=== PATIENT | female | born 1975 | race Caucasian/White ===

== ENCOUNTER 2020-02-13 09:49 | Emergency (ER) | payer SELFPAY ==
[~2020-02-13] VITALS: Ht 157 cm; Wt 81.0 kg
[~2020-02-13 09:49] MED LIST: ACET1TAB43 PO; BIRTH CONTROL; CIPR500T78 PO; DOCU-143 PO; DOCU100C37 PO; DOCU100T7; FERR325T18 PO; FLUO20CA42; GLYB2.5T4 PO; HCA25SU PR; IBUP-1773 PO; PREN1TAB86 PO
--- NOTE | 2020-02-13 10:36 | ED Cough/URI ---
General Chief Complaint: Respiratory Problems Stated Complaint: COUGH,SOB, WEAK ,COVID EXPOSURE Nursing Triage Note: [place] [facility] [place] COMPLAINS OF HEADACEH AND GENERALIZED WEAKNESS SINCE TUESDAY. DAUGHTER WHO LIVES IN THE SAME HOUSE IS COVID POSITIVE. Sepsis Screen: Possible Severe Sepsis Risk Source: patient Exam Limitations: no limitations History of Present Illness Date Seen by Provider: Feb 13, 2020 Time Seen by Provider: 10:34 Initial Comments With reports of cough shortness of breath weakness. Her daughter with whom she lives is Covid positive. This patient also developed a headache starting on Tuesday 6 days ago Timing/Duration: constant Severity/Quality: moderate Prior Episodes/Possible Cause: no prior episodes Associated Symptoms: denies symptoms Allergies and Home Medications Allergies Coded Allergies: No Known Drug Allergies (Unverified , 06/12/09) Home Medications Acetaminophen with Codeine 1 Each Tablet, 1-2 TAB PO Q4H PRN for MODERATE TO SEVERE PAIN Prescribed by: KAYKAY BURGESS on 03/04/16 110 Docusate Sodium 100 Mg Capsule, 100 MG PO BID PRN for CONSTIPATION Prescribed by: KAYKAY BURGESS on 03/04/16 1107 Ferrous Sulfate 325 Mg Tablet, 325 MG PO BID, (Reported) Ibuprofen 600 Mg Tablet, 600 MG PO Q6H Prescribed by: KAYKAY BURGESS on 03/04/16 1107 Vit W-Ca,Fe,FA(<1 mg) 1 Each Tablet, 1 EACH PO DAILY, (Reported) Patient Home Medication List Home Medication List Reviewed: Yes Review of Systems Review of Systems Constitutional: see HPI EENTM: see HPI Respiratory: no symptoms reported Cardiovascular: no symptoms reported Genitourinary: no symptoms reported Musculoskeletal: see HPI, muscle weakness Skin: no symptoms reported Psychiatric/Neurological: No Symptoms Reported, Headache Hematologic/Lymphatic: No Symptoms Reported Immunological/Allergic: no symptoms reported Past Ewuuawl-Ejmzrz-Ucjgaw Hx Patient Social History Recent Foreign Travel: No Contact w/Someone Who Travel: No Recent Infectious Disease Expo: No Recent Hopitalizations: No Immunizations Up To Date Tetanus Booster (TDap): Less than 5yrs PED Vaccines UTD: No Date of Influenza Vaccine: Jan 31, 2016 Seasonal Allergies Seasonal Allergies: No Past Medical History Surgeries: No Respiratory: No Cardiac: No Neurological: No Reproductive Disorders: No Sexually Transmitted Disease: No Gastrointestinal: No Musculoskeletal: No Endocrine: No Cancer: No Psychosocial: No Integumentary: No Blood Disorders: No (Hx of anemia) Adverse Reaction/Blood Tranf: No Family Medical History Diabetes mellitus 19 FATHER (father) 19 MOTHER (mother) No Pertinent Family Hx Physical Exam Vital Signs - First Documented 02/13/20 10:15 Temp 36.6 Pulse 99 Resp 18 B/P (MAP) 112/65 (81) Pulse Ox 100 O2 Delivery Room Air Capillary Refill : Less Than 3 Seconds Height: 5'1.00" Weight: 201lbs. 4.0oz. 91.408004ry; 32.00 BMI Method:Stated General Appearance: WD/WN, no apparent distress, obese Eyes: Bilateral Eye Normal Inspection, Bilateral Eye PERRL, Bilateral Eye EOMI Neck: non-tender, full range of motion Respiratory: normal breath sounds, no respiratory distress, no accessory muscle use Gastrointestinal: normal bowel sounds, non tender, soft Neurologic/Psychiatric: alert, normal mood/affect, oriented x 3 Skin: normal color, warm/dry Progress/Results/Core Measures Suspected Sepsis Recent Fever Within 48 Hours: Yes Infection Criteria Present: Suspected New Infection New/Unexplained Altered Menta: No Sepsis Screen: Possible Severe Sepsis Risk SIRS Temperature: Pulse: 99 Respiratory Rate: 18 Laboratory Tests 02/13/20 10:25: Blood Pressure 112 /65 Mean: 81 Laboratory Tests 02/13/20 10:25: Results/Orders Lab Results Laboratory Tests Test 02/13/20 10:25 Range/Units Coronavirus 2019 (MALIK) Positive H Negative My Orders Orders - NARCISA LOWRY APRN Cbc With Automated Diff (02/13/20 10:30) Comprehensive Metabolic Panel (02/13/20 10:30) Hs C Reactive Protein (02/13/20 10:30) Covid 19 Inhouse Test (02/13/20 10:30) Chest 1 View, Ap/Pa Only (02/13/20 10:30) Ed Iv/Invasive Line Start (02/13/20 10:30) Vital Signs/I&O 02/13/20 10:15 Temp 36.6 Pulse 99 Resp 18 B/P (MAP) 112/65 (81) Pulse Ox 100 O2 Delivery Room Air Capillary Refill : Less Than 3 Seconds Blood Pressure Mean: 81 Departure Impression Primary Impression: COVID-19 Disposition: 01 HOME, SELF-CARE Condition: Stable Departure-Patient Inst. Decision time for Depature: 10:57 Referrals: NO,LOCAL PHYSICIAN (PCP/Family) Primary Care Physician Patient Instructions: COVID19 Add. Discharge Instructions: 1. Tylenol and ibuProfen for fever or discomfort. Qocx-id-phea quarantined away from others. [facility] will be in touch with you to further guide you on quarantine restrictions. All discharge instructions reviewed with patient and/or family. Voiced understanding. NARCISA LOWRY MANAGER [employer] Feb 13, 2020 10:36
[2020-02-13 10:53] LABS: BASOPHILS % (AUTO) 0 % (0-10); EOSINOPHILS % (AUTO) 0 % (0-10)
[2020-02-13 10:55] LABS: HEMATOCRIT 30 % (35-52); HEMOGLOBIN 8.4 g/dL (11.5-16.0); LYMPHOCYTES # (AUTO) 1.5 10^3/uL (1.0-4.0); LYMPHOCYTES % (AUTO) 24 % (12-44); MEAN CORPUSCULAR HEMOGLOBIN 17 pg (25-34); MEAN CORPUSCULAR HGB CONC 29 g/dL (32-36); MEAN CORPUSCULAR VOLUME 59 fL (80-99); MEAN PLATELET VOLUME 10.1 fL (9.0-12.2); MONOCYTES # (AUTO) 0.4 10^3/uL (0.0-1.0); MONOCYTES % (AUTO) 7 % (0-12); NEUTROPHILS # (AUTO) 4.4 10^3/uL (1.8-7.8); NEUTROPHILS % (AUTO) 69 % (42-75); PLATELET COUNT 395 10^3/uL (130-400); WHITE BLOOD COUNT 6.3 10^3/uL (4.3-11.0)
[2020-02-13 11:05] LABS: SMEAR SCAN COMMENT YES
[2020-02-13 11:06] LABS: ALANINE AMINOTRANSFERASE 55 U/L (0-55); ALBUMIN 3.8 GM/DL (3.2-4.5); ALKALINE PHOSPHATASE 82 U/L (40-136); BILIRUBIN,TOTAL 0.7 MG/DL (0.1-1.0); BUN/CREATININE RATIO 13; CALCIUM 8.5 MG/DL (8.5-10.1); CARBON DIOXIDE 24 MMOL/L (21-32); CHLORIDE 103 MMOL/L (98-107); CREATININE SERUM 0.78 MG/DL (0.60-1.30); GFR ESTIMATED > 60; GLUCOSE 151 MG/DL (70-105); POTASSIUM 3.5 MMOL/L (3.6-5.0); SODIUM 138 MMOL/L (135-145); TOTAL PROTEIN 7.9 GM/DL (6.4-8.2)
--- NOTE | 2020-02-13 11:07 | Diagnostic Imaging Report ---
INDICATION: Cough Portable chest 11:02 AM Heart size and pulmonary vascularity are normal. Lungs are clear. There are no effusions or pneumothoraces. IMPRESSION: Negative chest. Dictated by: Dictated on workstation # [id number]
[2020-02-13 11:34] VITALS: BP 112/65
== END 2020-02-13 11:34 | disposition home or self-care (01) ==
LOC: EDUNIT# 09:49 → ER 09:53
DX: U07.1 COVID-19 (principal); Z83.3 Family history of diabetes mellitus
CPT/HCPCS: 71045; 80053; 85025; 86141; U0002; 36415; 87635

== ENCOUNTER 2020-07-01 10:20 | Emergency (ER) | payer SELFPAY ==
[~2020-07-01] VITALS: Ht 162 cm; Wt 91.0 kg
[~2020-07-01 10:20] MED LIST changes: +GLBR2.5T PO; -GLYB2.5T4 PO
--- NOTE | 2020-07-01 10:55 | ED Neurological Problem ---
General Chief Complaint: Neurological Problems Stated Complaint: FACIAL NUMBNESS Nursing Triage Note: PT AMBULATED TO ROOM 3 PT SPEAKS SWEDISH, INTERPRETTED BY ADULT SON. PT STATES SON PT STATES STARTED HAVING NUMBNESS OF FACE AND IN L ARM AND L LEG @1999 LAST PM. 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 WAS SEEN BY [facility] AND SENT TO ED FOR FURTHER WORK UP. PT DENIES PAIN. Nursing Sepsis Screen: No Definite Risk Source: patient Exam Limitations: no limitations History of Present Illness Date Seen by Provider: Jul 01, 2020 Time Seen by Provider: 10:45 Initial Comments Patient is a 45-year-old female who presents to the emergency department today with a chief complaint of left-sided headache onset around 8:00 to 830 last night with some left-sided weakness and numbness. Patient states that she took some Tylenol and ibuprofen last night and went to bed. She was able to sleep through the night but woke up with a slightly more intense headache this morning. Patient attributed her headache last night to after having worked all day yesterday. Patient states that she was still "numb" this morning and she felt like it might be muscle fatigue. Patient states that the numbness involves the left side of her face, her left upper extremity and left lower extremity. Patient never has had anything like this before. She denies any recent traumas or injuries. She has had headaches in the past but none that were associated with the numbness. She denies any acute changes in vision. No speech difficulties or swallowing difficulties. Patient is a non-smoker, nondrinker and denies recreational drug use. She is not on control pills. Her last menstrual cycle was on June 16 and was normal for her. She takes no daily medications. She has no family history of early stroke. Patient son is used as an yard assistant to facilitate communication with the patient as she is Mongolian-speaking only. All other review of systems reviewed and negative except as stated. Timing/Duration: 24 hours Severity: mild Associated Symptoms: numbness in legs/feet; No slurred speech, No trouble walking, No vision changes Allergies and Home Medications Allergies Coded Allergies: No Known Drug Allergies (Unverified , 06/12/09) Home Medications Ferrous Sulfate 325 Mg Tablet, 325 MG PO BID, (Reported) Patient Home Medication List Home Medication List Reviewed: Yes Review of Systems Review of Systems Constitutional: see HPI Eyes: No Symptoms Reported Ears, Nose, Mouth, Throat: no symptoms reported Respiratory: no symptoms reported Cardiovascular: no symptoms reported Gastrointestinal: no symptoms reported Genitourinary: no symptoms reported Musculoskeletal: no symptoms reported Skin: no symptoms reported Psychiatric/Neurological: Headache (Left-sided), Numbness (Left face, left upper extremity, left lower extremity); Denies Tingling Endocrine: No Symptoms Reported All Other Systems Reviewed Negative Unless Noted: Yes Past Guvbwwk-Mtjcxs-Zssrjz Hx Patient Social History Alcohol Use: Denies Use Smoking Status: Never a Smoker Recent Infectious Disease Expo: No Recent Hopitalizations: No Immunizations Up To Date Tetanus Booster (TDap): Less than 5yrs PED Vaccines UTD: No Date of Influenza Vaccine: Jan 31, 2016 Seasonal Allergies Seasonal Allergies: No Past Medical History Surgeries: No Respiratory: No Cardiac: No Neurological: No Last Menstrual Period: Jun 23, 2020 Reproductive Disorders: No Sexually Transmitted Disease: No Gastrointestinal: No Musculoskeletal: No Endocrine: No Cancer: No Psychosocial: No Integumentary: No Blood Disorders: No (Hx of anemia) Adverse Reaction/Blood Tranf: No Family Medical History Diabetes mellitus 19 FATHER (father) 19 MOTHER (mother) No Pertinent Family Hx Physical Exam Vital Signs Vital Signs - First Documented 07/01/20 10:25 Temp 36.3 Pulse 90 Resp 24 B/P (MAP) 171/83 (112) Pulse Ox 100 Capillary Refill : Less Than 3 Seconds Height, Weight, BMI Height: 5'1.00" Weight: 201lbs. 4.0oz. 91.490520rn; 34.00 BMI Method:Stated General Appearance: WD/WN, no apparent distress HEENT: PERRL/EOMI, normal ENT inspection Neck: full range of motion, supple Respiratory: lungs clear, normal breath sounds, no respiratory distress, no accessory muscle use Cardiovascular: regular rate, rhythm Gastrointestinal: non tender Extremities: non-tender, normal inspection, no pedal edema, no calf tenderness Neurologic/Psychiatric: systems consultant II-XII nml as tested, alert, normal mood/affect, oriented x 3, sensory deficit (left face, arm and leg) Crainal Nerves: normal hearing, normal speech, PERRL; No abnormal eye position, No abnormal pupil position, No abnormal speech, No facial asymmetry, No facial droop; facial paresthesias; No facial weakness, No gaze palsy, No tongue deviation to R, No tongue deviation to L Coordination/Gait: normal finger to nose Motor/Sensory: no motor deficit, no pronator drift, sensory deficit; No weak motor strength RUE, No weak motor strength LUE, No weak motor strength RLE, No weak motor strength LLE Skin: normal color, warm/dry Stroke NIH Stroke Scale Assessment Level of Consciousness: 0=Alert (0), Level of Consciousness-Questions: 0=Ans wers both month/age (0), LOC Commands: 0=Performs both tasks (0), Visual Zhao: 0=No visual loss (0), Facial Movement (Facial Paresis): 0=Normal symmetrical mnt (0), Motor Function-Arms Right: 0=No drift (0), Motor Function-Arms Left: 0=No drift (0), Motor Function-Legs Right: 0=No drift (0), Motor Function-Legs Left: 0=No drift (0), Limb Ataxia: 0=Absent (0), Sensory: 0=Normal:no loss (0), Best Language: 0=No aphasia (0), Dysarthria: 0=Normal (0), Extinction & Inattention: 0=No abnormality (0), Total: Progress/Results/Core Measures Results/Orders Lab Results Laboratory Tests Test 07/01/20 10:34 Range/Units White Blood Count 7.9 4.3-11.0 10^3/uL Red Blood Count 4.45 3.80-5.11 10^6/uL Hemoglobin 11.1 L 11.5-16.0 g/dL Hematocrit 36 35-52 % Mean Corpuscular Volume 80 80-99 fL Mean Corpuscular Hemoglobin 25 25-34 pg Mean Corpuscular Hemoglobin Concent 31 L 32-36 g/dL Red Cell Distribution Width 10.0-14.5 % Platelet Count 414 H 130-400 10^3/uL Mean Platelet Volume 10.3 9.0-12.2 fL Immature Granulocyte % (Auto) 1 % Neutrophils (%) (Auto) 62 42-75 % Lymphocytes (%) (Auto) 29 12-44 % Monocytes (%) (Auto) 6 0-12 % Eosinophils (%) (Auto) 3 0-10 % Basophils (%) (Auto) 1 0-10 % Neutrophils # (Auto) 4.9 1.8-7.8 10^3/uL Lymphocytes # (Auto) 2.3 1.0-4.0 10^3/uL Monocytes # (Auto) 0.4 0.0-1.0 10^3/uL Eosinophils # (Auto) 0.2 0.0-0.3 10^3/uL Basophils # (Auto) 0.1 0.0-0.1 10^3/uL Immature Granulocyte # (Auto) 0.1 0.0-0.1 10^3/uL Sodium Level 138 135-145 MMOL/L Potassium Level 3.7 3.6-5.0 MMOL/L Chloride Level 106 98-107 MMOL/L Carbon Dioxide Level 21 21-32 MMOL/L Anion Gap 11 5-14 MMOL/L Blood Urea Nitrogen 10 7-18 MG/DL Creatinine 0.67 0.60-1.30 MG/DL Estimat Glomerular Filtration Rate > 60 BUN/Creatinine Ratio 15 Glucose Level 146 H 70-105 MG/DL Glucometer 139 H 70-110 MG/DL Calcium Level 8.8 8.5-10.1 MG/DL Serum Test, Qualitative NEGATIVE NEGATIVE Smear Scan YES My Orders Orders - ALEXA MCCRARY MD Cbc With Automated Diff (07/01/20 10:56) Basic Metabolic Panel (07/01/20 10:56) Hcg,Qualitative Serum (07/01/20 10:56) Ekg Tracing (07/01/20 10:56) Ct Head Wo (07/01/20 10:56) Ketorolac Injection (Toradol Injection) (07/01/20 11:30) Ct Angio Head/Neck (07/01/20 12:04) Iohexol Injection (Omnipaque 350 Mg/Ml 1 (07/01/20 12:15) Received Contrast (Hold Metformin- Contr (07/01/20 12:15) Ns (Ivpb) (Sodium Chloride 0.9% Ivpb Bag (07/01/20 12:15) Medications Given in ED Current Medications Medications Dose Ordered Sig/Isai Route Start Time Stop Time Status Last Admin Dose Admin Iohexol 75 ml ONCE ONCE IV 07/01/20 12:15 07/01/20 12:37 DC 07/01/20 12:41 75 ML Ketorolac Tromethamine 30 mg ONCE ONCE IVP 07/01/20 11:30 07/01/20 11:31 DC 07/01/20 11:35 30 MG Sodium Chloride 100 ml ONCE ONCE IV 07/01/20 12:15 07/01/20 12:37 DC 07/01/20 12:41 80 ML Vital Signs/I&O 07/01/20 10:25 Temp 36.3 Pulse 90 Resp 24 B/P (MAP) 171/83 (112) Pulse Ox 100 Blood Pressure Mean: 112 Progress Progress Note : Time: 12:03 Progress Note Patient reassessed after Toradol, she states her headache is mildly improved but the numbness is still there, may be possibly better. Potentially some of this is difficult to ascertain secondary to the language barrier. At this time I am going to do a CTA of her head and neck just to rule out clots. If head and neck CTA are negative we will consider discharge to home CTA Brain and cervical spine normal; non contrast brain negative for ischemic event. Patient states feeling much better headache sood. Still has a "numb" feeling in her right side "like a shot of novocaine at the dentist". Suspect this may be a complex migraine variant as no appreciable pathology was found on imaging. Would expect to see some indication of ischemic stroke at the 12-14 hour diana out from onset of symptoms. Will have her continue NSAIDS and have close follow up with her primary care throught . Strict return precautions given. Both patient and her son (acting as yard assistant) are present and indicate understanding of discharge instructions. All questions are sought and answered. Will have her take a baby aspirin daily. Initial ECG Impression Date: Jul 01, 2020 Initial ECG Impression Time: 10:55 Initial ECG Rate: 89 Initial ECG Rhythm: Normal Sinus Initial ECG Intervals: Normal Initial ECG Impression: Normal Departure Impression Primary Impression: Headache Qualified Codes: G44.209 - Tension-type headache, unspecified, not intractable Additional Impression: Paresthesia Disposition: 01 HOME, SELF-CARE Condition: Stable Departure-Patient Inst. Decision time for Depature: 14:06 Referrals: [facility],LOCAL PHYSICIAN (PCP) Primary Care Physician Patient Instructions: Headache, Adult (DC) Add. Discharge Instructions: Take over the counter Alleve (naproxen) twice daily (with food) as needed for headache. Start taking a baby aspirin daily. Monitor your blood pressure once a day and keep a record of this for your follow up with your primary care doctor. Please come back to the Emergency Department if you have any worsening headache, especially associated with worsening numbnes, arm or leg weakness, vision change, speech difficulty, or any other emergent concerning symptoms. Please make a follow up appointment with [facility] in the next week to 10 days. Work/School Note: Work Release Form Date Seen in the Emergency Department: Jul 01, 2020 Return to Work: Jul 03, 2020 ALEXA MCCRARY MD Jul 01, 2020 10:55
[2020-07-01 11:11] LABS: BASOPHILS # (AUTO) 0.1 10^3/uL (0.0-0.1); BASOPHILS % (AUTO) 1 % (0-10); EOSINOPHILS # (AUTO) 0.2 10^3/uL (0.0-0.3); EOSINOPHILS % (AUTO) 3 % (0-10); HEMATOCRIT 36 % (35-52); HEMOGLOBIN 11.1 g/dL (11.5-16.0); LYMPHOCYTES # (AUTO) 2.3 10^3/uL (1.0-4.0); LYMPHOCYTES % (AUTO) 29 % (12-44); MEAN CORPUSCULAR HEMOGLOBIN 25 pg (25-34); MEAN CORPUSCULAR HGB CONC 31 g/dL (32-36); MEAN CORPUSCULAR VOLUME 80 fL (80-99); MEAN PLATELET VOLUME 10.3 fL (9.0-12.2); MONOCYTES # (AUTO) 0.4 10^3/uL (0.0-1.0); MONOCYTES % (AUTO) 6 % (0-12); NEUTROPHILS # (AUTO) 4.9 10^3/uL (1.8-7.8); NEUTROPHILS % (AUTO) 62 % (42-75); PLATELET COUNT 414 10^3/uL (130-400); WHITE BLOOD COUNT 7.9 10^3/uL (4.3-11.0)
[2020-07-01 11:15] LABS: BUN/CREATININE RATIO 15; CALCIUM 8.8 MG/DL (8.5-10.1); CARBON DIOXIDE 21 MMOL/L (21-32); CHLORIDE 106 MMOL/L (98-107); CREATININE SERUM 0.67 MG/DL (0.60-1.30); GFR ESTIMATED > 60; GLUCOSE 146 MG/DL (70-105); POTASSIUM 3.7 MMOL/L (3.6-5.0); SODIUM 138 MMOL/L (135-145)
--- NOTE | 2020-07-01 11:25 | Diagnostic Imaging Report ---
EXAMINATION: CT head without contrast. TECHNIQUE: Multiple contiguous axial images were obtained through the brain without the use of intravenous contrast. All CT scans use one or more of the following dose optimizing techniques: automated exposure control, MA and/or KvP adjustment based on a patient size and exam type, or iterative reconstruction. HISTORY: Left-sided numbness. Weakness. Headache. COMPARISON: None available. FINDINGS: No large acute territorial ischemia, mass, or hemorrhage. No midline shift or mass effect. The ventricles, cortical sulci, and basilar cisterns are patent and unremarkable. The orbits are normal. Paranasal sinuses are normal. Mastoid air cells are clear. No soft tissue abnormality is seen. No osseus lesions or fractures are seen. IMPRESSION: 1. No large acute territorial ischemia, mass, or hemorrhage. Dictated by: Dictated on workstation # [id number]
[2020-07-01] MEDS ORDERED: KETOROLAC 30 MG/ML VIAL IVP ONE (11:30)
[2020-07-01 11:44] LABS: SMEAR SCAN COMMENT YES
[2020-07-01] MEDS ORDERED: NS 100 ML (IVPB) BAG IV ONE (12:15)
[2020-07-01] MEDS ORDERED: IOHEXOL 350 MG/ML 100 ML (OMNIPAQUE 350) VIAL IV ONE (12:15)
[2020-07-01] MEDS ORDERED: HOLD METFORMIN - RECEIVED CONTRAST 20 ML VIAL IV SCH (12:15)
--- NOTE | 2020-07-01 13:02 | Diagnostic Imaging Report ---
PROCEDURE: CT angiography of the head and CT angiography of the neck with and without contrast. TECHNIQUE: Contiguous noncontrast images were obtained from the skull base through the vertex. After intravenous contrast administration, helical CT angiography of the neck was performed. Source data was reformatted into 3D MIP projections. Delayed post contrast acquisition was also obtained. Auto Exposure Controls were utilized during the CT exam to meet ALARA standards for radiation dose reduction. INDICATION: Left sided numbness. Correlated with nonenhanced head CT performed earlier this same date. Delayed postcontrast enhanced imaging revealed no abnormal parenchymal or meningeal enhancement, no identifiable mass. There is normal enhancement of the major dural venous sinuses. NECK: The aortic arch was patent. As a variant the left common carotid arises off the innominate. Subclavians bilaterally patent. Bilateral cervical vertebral arteries patent and codominant. Bilateral common carotids widely patent. Carotid bulbs and bifurcations patent. The major bilateral external carotid arterial branches are patent. The bilateral cervical internal carotid arterial segments were nonfocal. CT ANGIOGRAM HEAD: There is atherosclerotic calcified plaques in the cavernous segments of the carotids, mild and without hemodynamically significant degrees of stenosis. The right A1 segment is atretic or absent, the left widely patent. There is a patent ACOM present with well opacified bilateral anterior cerebral arteries. Bilateral middle cerebral arterial segments and primary branches appeared patent. No large vessel occlusion, thrombus or intraluminal filling defect. No aneurysm is identified. The intradural vertebral arteries are patent. The bilateral PUBLIC POLICY MANAGER segments are patent. IMPRESSION: No hemodynamically significant stenosis, large vessel occlusion or thrombus. No acute appearing abnormality or aneurysm. Dictated by: Dictated on workstation # [id number]
[2020-07-01 14:18] VITALS: BP 119/69
== END 2020-07-01 14:17 | disposition home or self-care (01) ==
LOC: EDUNIT# 10:20 → ER 10:23
DX: R51.9 Headache, unspecified (principal); R20.2 Paresthesia of skin; I10 Essential (primary) hypertension; Z83.3 Family history of diabetes mellitus
CPT/HCPCS: 36415; 70450; 70496; 70498; 80048; 82962; 84703; 85025; 93005

== ENCOUNTER → 2020-09-26 | Outpatient (CLI) | payer OTHER ==
--- NOTE | 2020-09-29 09:52 | Diagnostic Imaging Report ---
INDICATION: Routine screening Comparison is made with prior mammogram from 04/16/2011. 2-D and 3-D bilateral screening mammography was performed with CAD. Both breasts are heterogeneously dense, limiting the sensitivity of mammography. The parenchymal pattern is stable. No mass or malignant-appearing microcalcifications are seen. Axillae are unremarkable. IMPRESSION: BI-RADS Category 1 No mammographic features suspicious for malignancy are identified. ACR BI-RADS Category 1: Negative. Result letter will be mailed to the patient. Note: At least 10% of breast cancer is not imaged by mammography. Dictated by: Dictated on workstation # [id number]
== END ==
LOC: RAD 15:15
PROVIDERS: ATTEND Nurse Practitioner Family
DX: Z12.31 Encounter for screening mammogram for malignant neoplasm of breast (principal)
CPT/HCPCS: 77063; 77067

== ENCOUNTER 2022-03-27 14:00 | Emergency (ER) | payer SELFPAY ==
[~2022-03-27] VITALS: Ht 157 cm; Wt 85.0 kg
[~2022-03-27 14:00] MED LIST changes: +ACET-11 PO; -ACET1TAB43 PO
--- NOTE | 2022-03-27 14:18 | ED General ---
General Chief Complaint: General Problems/Pain Stated Complaint: HEMOGLOBIN LOW Source of Information: Patient Exam Limitations: No Limitations History of Present Illness Date Seen by Provider: Mar 27, 2022 Time Seen by Provider: 14:10 Initial Comments Patient is a 46-year-old female who presents to the emergency department for evaluation of anemia. Patient had some blood work done at PCPs office on 03/25 that resulted today with a notable finding of her hemoglobin being 6.6. Patient has a history of anemia that is thought to be related to her heavy menses. She states she has had some mild dizziness/lightheadedness for the last 2 months. Patient states she took iron supplementation at 1 point but was told to stop for an unknown reason. Patient denies any bloody stools or unexplained bruising. LMP was at the end of February and lasted approximately 9 days. Denies any shortness of air. No reported history of coagulopathies or bleeding diatheses. Allergies and Home Medications Allergies Coded Allergies: No Known Drug Allergies (Unverified , 06/12/09) Patient Home Medication List Home Medication List Reviewed: Yes Ferrous Sulfate (Ferrous Sulfate) 325 Mg Tablet, 325 MG PO BID, (Reported) Entered as Reported by: STANLEY JUARES on 03/02/16 1803 Review of Systems Review of Systems Constitutional: see HPI, dizziness EENTM: no symptoms reported Respiratory: no symptoms reported Cardiovascular: no symptoms reported Gastrointestinal: no symptoms reported Genitourinary: no symptoms reported Musculoskeletal: no symptoms reported Skin: no symptoms reported Psychiatric/Neurological: No Symptoms Reported Hematologic/Lymphatic: See HPI, Anemia Immunological/Allergic: no symptoms reported Past Lfdbboz-Vipnrd-Vybnss Hx Patient Social History Tobacco Use?: No Substance use?: No Alcohol Use?: No Immunizations Up To Date Tetanus Booster (TDap): Less than 5yrs PED Vaccines UTD: No Seasonal Allergies Seasonal Allergies: No Past Medical History Surgery/Hospitalization HX: PREVIOUS HX ANEMIA, DENIES OTHER PMH Surgeries: No Respiratory: No Cardiac: No Neurological: No Reproductive Disorders: No Sexually Transmitted Disease: No Gastrointestinal: No Musculoskeletal: No Endocrine: No Cancer: No Psychosocial: No Integumentary: No Blood Disorders: No (Hx of anemia) Adverse Reaction/Blood Tranf: No Family Medical History Diabetes mellitus 19 FATHER (father) 19 MOTHER (mother) No Pertinent Family Hx Physical Exam Vital Signs Vital Signs - First Documented 03/27/22 14:14 Temp 36.9 Pulse 95 Resp 18 B/P (MAP) 142/67 (92) Pulse Ox 99 O2 Delivery Room Air Capillary Refill : Less Than 3 Seconds Height, Weight, BMI Height: 5'1.00" Weight: 201lbs. 4.0oz. 91.083001cf; 34.00 BMI Method:Stated General Appearance: No Apparent Distress, WD/WN HEENT: PERRL/EOMI, TMs Normal, Normal ENT Inspection, Pharynx Normal Neck: Normal Inspection, Non Tender, Supple Respiratory: Chest Non Tender, Lungs Clear, Normal Breath Sounds, No Accessory Muscle Use, No Respiratory Distress Cardiovascular: Regular Rate, Rhythm Gastrointestinal: Non Tender, Soft Neurologic/Psychiatric: Alert, Oriented x3, No Motor/Sensory Deficits, Normal Mood/Affect Skin: Normal Color, Warm/Dry Progress/Results/Core Measures Suspected Sepsis SIRS Temperature: Pulse: Respiratory Rate: Laboratory Tests 03/27/22 14:19: White Blood Count 6.0 Blood Pressure / Mean: Laboratory Tests 03/27/22 14:19: Platelet Count 536H Results/Orders Lab Results Laboratory Tests Test 03/27/22 14:19 Range/Units White Blood Count 6.0 4.3-11.0 10^3/uL Red Blood Count 4.21 3.80-5.11 10^6/uL Hemoglobin 6.7 *L 11.5-16.0 g/dL Hematocrit 25 L 35-52 % Mean Corpuscular Volume 59 L 80-99 fL Mean Corpuscular Hemoglobin 16 L 25-34 pg Mean Corpuscular Hemoglobin Concent 27 L 32-36 g/dL Red Cell Distribution Width 20.9 H 10.0-14.5 % Platelet Count 536 H 130-400 10^3/uL Mean Platelet Volume 8.9 L 9.0-12.2 fL Immature Granulocyte % (Auto) 0 % Neutrophils (%) (Auto) 51 42-75 % Lymphocytes (%) (Auto) 36 12-44 % Monocytes (%) (Auto) 9 0-12 % Eosinophils (%) (Auto) 3 0-10 % Basophils (%) (Auto) 1 0-10 % Neutrophils # (Auto) 3.0 1.8-7.8 10^3/uL Lymphocytes # (Auto) 2.1 1.0-4.0 10^3/uL Monocytes # (Auto) 0.5 0.0-1.0 10^3/uL Eosinophils # (Auto) 0.2 0.0-0.3 10^3/uL Basophils # (Auto) 0.1 0.0-0.1 10^3/uL Immature Granulocyte # (Auto) 0.0 0.0-0.1 10^3/uL My Orders Orders - MOURAKALPESH APRN Cbc With Automated Diff (03/27/22 14:12) Type And Screen (03/27/22 14:12) Vital Signs: Special (Order) (03/27/22 14:48) Consent-Obtain Consent For (03/27/22 14:48) Monitor S/S Transfusion Reacti (03/27/22 14:48) Ns Iv 500 Ml (Sodium Chloride 0.9%) (03/27/22 15:00) Red Cells Leukocytes Reduced (03/27/22 14:48) Vital Signs/I&O 03/27/22 03/27/22 03/27/22 03/27/22 14:14 15:28 15:43 16:55 Temp 36.9 35.6 35.6 36.3 Pulse 95 74 70 79 Resp 18 18 18 18 B/P (MAP) 142/67 (92) 117/68 118/67 121/71 Pulse Ox 99 100 100 100 O2 Delivery Room Air Room Air Room Air Room Air Capillary Refill : Less Than 3 Seconds Progress Note : Progress Note Patient is nontoxic and well hydrated on exam. No adventitious lung sounds or increased work of breathing noted on exam. Mucosal pallor noted. No petechial rash noted. Vital signs are reassuring without tachycardia or hypotension. Patient was ambulatory to the exam room without issue. CBC was obtained and hemoglobin was noted to be 6.7. Type and screen obtained and 1 unit of PRBC infused. Will d/c home with recs for supportive care and follow-up with PCP for persistent symptoms. Return precautions for urgent symptoms discussed. Patient verbalized understanding. Departure Impression Primary Impression: Anemia Qualified Codes: D64.9 - Anemia, unspecified Disposition: HOME, SELF-CARE Condition: Improved Departure-Patient Inst. Decision time for Depature: 16:15 Referrals: [facility] (PCP/Family) Primary Care Physician Patient Instructions: Anemia, Possibly From Low Iron, Adult ED KALPESH MOURA APRN Mar 27, 2022 14:18
[2022-03-27 14:26] LABS: BASOPHILS # (AUTO) 0.1 10^3/uL (0.0-0.1); BASOPHILS % (AUTO) 1 % (0-10); EOSINOPHILS # (AUTO) 0.2 10^3/uL (0.0-0.3); EOSINOPHILS % (AUTO) 3 % (0-10); HEMATOCRIT 25 % (35-52); LYMPHOCYTES # (AUTO) 2.1 10^3/uL (1.0-4.0); LYMPHOCYTES % (AUTO) 36 % (12-44); MEAN CORPUSCULAR HEMOGLOBIN 16 pg (25-34); MEAN CORPUSCULAR HGB CONC 27 g/dL (32-36); MEAN CORPUSCULAR VOLUME 59 fL (80-99); MEAN PLATELET VOLUME 8.9 fL (9.0-12.2); MONOCYTES # (AUTO) 0.5 10^3/uL (0.0-1.0); MONOCYTES % (AUTO) 9 % (0-12); NEUTROPHILS % (AUTO) 51 % (42-75); PLATELET COUNT 536 10^3/uL (130-400)
[2022-03-27 14:29] LABS: HEMOGLOBIN 6.7 g/dL (11.5-16.0)
[2022-03-27] MEDS ORDERED: NS IV 500 ML 500 ML IV SCH (15:00)
[2022-03-27 15:28] VITALS: BP 117/68
[2022-03-27 15:43] VITALS: BP 118/67
[2022-03-27 16:55] VITALS: BP 121/71
[2022-03-27 17:08] VITALS: BP 121/71
== END 2022-03-27 17:07 | disposition home or self-care (01) ==
LOC: EDUNIT# 14:00 → ER 14:02
DX: D64.9 Anemia, unspecified (principal)
CPT/HCPCS: 85025; 86850; 86900; 86901; 86922; 99284; P9016; 36415